=== PATIENT | female | born 1995 | race Caucasian/White ===

== ENCOUNTER → 2017-05-07 | Outpatient (CLI) | payer OTHER ==
--- NOTE | 2017-05-07 09:47 | USB ---
Reason for exam: clinical finding. Indicated problem(s): palpable abnormality in the left breast. Physical Findings: Nurse Summary: reoccurring lump in the left breast at 2 o'clock (nurse laurie). US Breast LT Left breast ultrasound includes all four quadrants, the retroareolar region and axilla. Finding demonstrates no cystic or solid lesion seen. These results were verbally communicated with the patient and result sheet given to the patient on 05/07/17. ASSESSMENT: Negative, BI-RAD 1 RECOMMENDATION: Clinical management of the left breast. Manage patient on a clinical basis.
== END | disposition home or self-care (01) ==
LOC: RADUSWWP 08:57
PROVIDERS: ATTEND Internal Medicine
DX: N63.0 Unspecified lump in unspecified breast (principal)

== ENCOUNTER → 2017-09-25 | Outpatient (CLI) | payer OTHER ==
--- NOTE | 2017-09-25 11:43 | US ---
EXAMINATION TYPE: US abdomen complete DATE OF EXAM: 09/25/2017 COMPARISON: NONE CLINICAL HISTORY: R10.9 Unspecified Abdominal Pain. difficulty eating for a year, nausea and vomiting , lost 20lbs EXAM MEASUREMENTS: Liver Length: 14.2 cm Gallbladder Wall: 0.2 cm CBD: 0.3 cm Spleen: 9.4 cm Right Kidney: 8.7 x 4.1 x 4.2 cm Left Kidney: 8.8 x 5.1 x 5.8 cm Pancreas: wnl Liver: wnl Gallbladder: wnl Evidence for sonographic Rachel's sign: no CBD: wnl Spleen: wnl Right Kidney: wnl Left Kidney: wnl and cortical measured differentiation is maintained bilaterally. Upper IVC: wnl Abd Aorta: wnl There is no ascites. IMPRESSION: No significant abnormalities evident.
== END | disposition home or self-care (01) ==
LOC: RADUSWWP 07:38
PROVIDERS: ATTEND Family Medicine
DX: R10.9 Unspecified abdominal pain (principal)
CPT/HCPCS: 76700

== ENCOUNTER 2022-04-25 07:20 | Emergency (ER) | payer BC, OTHER ==
[2022-04-25 07:34] VITALS: BP 132/89; PULSE 65; RESP 20; TEMP 98.1
--- NOTE | 2022-04-25 08:07 | ED ---
Upper Extremity HPI - General Chief Complaint: Extremity Injury, Upper Stated Complaint: hand injury Time Seen by Provider: 04/25/22 07:36 Source: patient, RN notes reviewed Mode of arrival: ambulatory Limitations: no limitations - History of Present Illness Initial Comments: This is a 26-year-old female who presents to the emergency department for a rig ht hand injury. 2 days ago, she punched a cabinet. She has since had pain and bruising to the right hand. She is taking ibuprofen and wrapping it, which she states is helpful. She came to the emergency department because the bruising has persisted and she wanted to make sure that it was not broken. Denies any fevers, chills, sore throat, cough, dyspnea, chest pain, palpitations, abdominal pain, nausea, vomiting, diarrhea, back pain, or headaches. MD Complaint: Injury to:: right, hand Onset/Timin -: days(s) Improves With: cold therapy, immobilization, medication Context: direct blow - Related Data Allergies Allergy/AdvReac Type Severity Reaction Status Date / Time No Known Allergies Allergy Verified 04/25/22 07:34 Review of Systems ROS Statement: Those systems with pertinent positive or pertinent negative responses have been documented in the HPI. ROS Other: All systems not noted in ROS Statement are negative. Past Medical History Past Medical History: Asthma History of Any Multi-Drug Resistant Organisms: None Reported Past Surgical History: No Surgical Hx Reported Past Psychological History: No Psychological Hx Reported Smoking Status: Vaper Past Alcohol Use History: Occasional Past Drug Use History: None Reported General Exam Limitations: no limitations General appearance: alert, in no apparent distress Head exam: Present: atraumatic, normocephalic, normal inspection Respiratory exam: Present: normal lung sounds bilaterally. Absent: respiratory distress, wheezes, rales, rhonchi, stridor Cardiovascular Exam: Present: regular rate, normal rhythm, normal heart sounds. Absent: systolic murmur, diastolic murmur, rubs, gallop, clicks Extremities exam: Present: other (Ecchymosis and tenderness to the dorsal aspect of the right hand. Full range of motion.) Neurological exam: Present: alert, oriented X3, CN II-XII intact Psychiatric exam: Present: normal affect, normal mood Skin exam: Present: warm, dry, intact, normal color. Absent: rash Course Vital Signs 04/25/22 07:32 Temperature 98.1 F Pulse Rate 65 Respiratory 20 Rate Blood Pressure 132/89 O2 Sat by Pulse 99 Oximetry Medical Decision Making - Medical Decision Making This is a 26-year-old female who presents to the emergency department with a right hand injury. X-rays obtained revealing no acute fractures or dislocations. Instructed her to continue alternating with ibuprofen and Tylenol and to apply ice for 10-15 minutes every 2-3 hours. She can also continue to wrap the hand if she finds it beneficial. Return precautions reviewed in depth, the patient is instructed to return to the emergency department with any new, worsening, or concerning symptoms. Patient verbalized understanding. This case was discussed in detail with the attending ED physician. Presentation, findings, and treatment plan discussed in detail as well. - Radiology Data Radiology results: report reviewed, image reviewed Disposition Clinical Impression: Hand injury Disposition: HOME SELF-CARE Instructions (If sedation given, give patient instructions): Hand Sprain (ED), Crush Injury (ED) Additional Instructions: Return to the emergency department with any new, worsening, or concerning symptoms. Alternate with ibuprofen and Tylenol as needed for pain relief. Continue to wrap the hand as needed and apply ice for 10-15 minutes every 2-3 hours. Follow up with your primary care provider in 1-2 days. Is patient prescribed a controlled substance at d/c from ED?: No Referrals: Danielle Spear MD [Primary Care Provider] - 1-2 days
--- NOTE | 2022-04-25 08:43 | XR ---
EXAMINATION TYPE: XR hand complete RT DATE OF EXAM: 04/25/2022 COMPARISON: NONE HISTORY: 26-year-old female pain after punching cabinet medial side of the hand near the fifth digit. TECHNIQUE: 3 views FINDINGS: No acute fracture, subluxation, dislocation. Joint spaces are maintained. IMPRESSION: No acute osseous abnormality seen.
== END 2022-04-25 09:10 | disposition home or self-care (01) ==
LOC: EC 07:20
DX: S69.91XA Unspecified injury of right wrist, hand and finger(s), initial encounter (principal); J45.909 Unspecified asthma, uncomplicated; F12.90 Cannabis use, unspecified, uncomplicated; W22.09XA Striking against other stationary object, initial encounter
CPT/HCPCS: 99283

== ENCOUNTER → 2022-11-09 | Outpatient (CLI) | payer BC | END | disposition home or self-care (01) | LOC: LABWHC1 08:57 | PROVIDERS: ATTEND Otolaryngology | DX: J30.89 Other allergic rhinitis (principal) | CPT/HCPCS: 36415 ==